=== PATIENT | female | born 1955 ===

== ENCOUNTER 2017-08-23 12:50 | Emergency (ER) | payer OTHER ==
[2017-08-23 13:09] VITALS: RESP 18; TEMP 97.9
--- NOTE | 2017-08-23 13:29 | ED PDOC ---
Arrival/HPI - General Chief Complaint: Anxiety Time Seen by Provider: 08/23/17 12:55 Historian: Patient, Other (coworker) - History of Present Illness Narrative History of Present Illness (Text): 08/23/17 13:15 A 61 year old female, who denies any significant past medical history,is brought into the emergency department by coworker after having a breakdown during lunch at work. The coworker notes the patient began to appear anxious, vomiting, and refused to communicate. The patient at bedside answers some questions and appears tearful. The patient's has been contacted and is on his way to the emergency department. Limited HPI & ROS due to patients mental status. Time/Duration: Prior to Arrival Symptom Onset: Sudden Symptom Course: Unchanged Activities at Onset: Emotional Upset Context: Work Past Medical History - Provider Review Nursing Documentation Reviewed: Yes - Psychiatric Hx Substance Use: No (unable to obtain) Family/Social History - Physician Review Nursing Documentation Reviewed: Yes Family/Social History: No Known Family HX Smoking Status: Unknown If Ever Smoked Hx Alcohol Use: No (unable to obtain) Hx Substance Use: No (unable to obtain) Allergies/Home Meds Allergies/Adverse Reactions: Allergies Unobtainable Allergy (Verified 08/23/17 13:08) Home Medications: Home Meds Medication Instructions Recorded Confirmed No Known Home Med 08/23/17 08/23/17 Review of Systems - Patients Enrolled in [employer] Initiative [X]: A conversation was conducted with the primary medical doctor. - Physician Review All systems were reviewed & negative as marked: Yes - Review of Systems Gastrointestinal: Vomiting Psychiatric: Anxiety Physical Exam Vital Signs Reviewed: Yes Vital Signs Temp Pulse Resp BP Pulse Ox 08/23/17 15:00 76 18 126/77 99 08/23/17 13:06 97.9 F 77 18 133/77 100 Temperature: Afebrile Blood Pressure: Normal Pulse: Regular Respiratory Rate: Normal Appearance: Positive for: Well-Appearing, Non-Toxic, Comfortable Pain Distress: None Mental Status: Positive for: Alert and Oriented X 3, other (tearful & anxious ) Finger Stick Blood Glucose: 138 - Systems Exam Head: Present: Atraumatic, Normocephalic Pupils: Present: PERRL Extroacular Muscles: Present: EOMI Conjunctiva: Present: Normal Mouth: Present: Moist Mucous Membranes Neck: Present: Normal Range of Motion Respiratory/Chest: Present: Clear to Auscultation, Good Air Exchange. No: Respiratory Distress, Accessory Muscle Use Cardiovascular: Present: Regular Rate and Rhythm, Normal S1, S2. No: Murmurs Abdomen: Present: Normal Bowel Sounds. No: Tenderness, Distention, Peritoneal Signs Back: Present: Normal Inspection Upper Extremity: Present: Normal Inspection. No: Cyanosis, Edema Lower Extremity: Present: Normal Inspection. No: Edema Neurological: Present: GCS=15, CN II-XII Intact, Speech Normal Skin: Present: Warm, Dry, Normal Color. No: Rashes Psychiatric: Present: Alert, Oriented x 3, Anxious Medical Decision Making ED Course and Treatment: 08/23/17 13:15 Impression: A 61 year old female who is anxious Differential Diagnosis included but are not limited to: Plan: -- EKG -- Chest X-ray -- Labs -- Zofran -- Urinalysis -- Reassess and disposition Progress Notes: 08/23/17 15:34 pt reassesed. now communicating. states "has been stressed". pes worker cleared pt for d/c - Lab Interpretations Lab Results: 08/23/17 13:50 08/23/17 13:50 Lab Results 08/23/17 14:50: Urine Opiates Screen Negative, Urine Methadone Screen Negative, Ur Barbiturates Screen Negative, Ur Phencyclidine Scrn Negative, Ur Amphetamines Screen Negative, U Benzodiazepines Scrn Negative, U Oth Cocaine Metabols Negative, U Cannabinoids Screen Negative 08/23/17 14:50: Urine Color Yellow, Urine Appearance Clear, Urine pH 8.5, Ur Specific [place] 1.015, Urine Protein Trace H, Urine Glucose (UA) Negative, Urine Ketones 40 H, Urine Blood Negative, Urine Nitrate Negative, Urine Bilirubin Negative, Urine Urobilinogen 0.2, Ur Leukocyte Esterase Negative, Urine RBC 0 - 2, Urine WBC 2 - 5, Ur Epithelial Cells 0 - 2, Urine Bacteria Few 08/23/17 13:50: Alcohol, Quantitative < 10 08/23/17 13:50: Salicylates < 1 L, Acetaminophen < 10.0 L 08/23/17 13:50: Sodium 141, Potassium 3.3 L, Chloride 107, Carbon Dioxide 21, Anion Gap 16, BUN 16, Creatinine 0.9, Est GFR ( Amer) > 60, Est GFR (Non- Af Amer) > 60, Random Glucose 131 H, Calcium 10.0, Total Bilirubin 0.5, AST 31, ALT 20, Alkaline Phosphatase 61, Total Protein 7.6, Albumin 4.7, Globulin 2.9, Albumin/Globulin Ratio 1.6 08/23/17 13:50: WBC 9.8, RBC 4.80, Hgb 13.9, Hct 40.5, MCV 84.4, MCH 29.0, MCHC 34.3, RDW 12.6, Plt Count 304, MPV 9.8, Gran % 79.1 H, Lymph % (Auto) 15.2 L, [place] % (Auto) 5.4, Eos % (Auto) 0.1 L, Baso % (Auto) 0.2, Gran # 7.77 H, Lymph # 1.5, [place] # 0.5, Eos # 0.0, Baso # 0.02 - RAD Interpretation Radiology Orders: 08/23/17 13:16 CHEST PORTABLE [RAD] Stat - Medication Orders Current Medication Orders: Discontinued Medications Lorazepam (Ativan) 0.5 mg PO ONCE ONE PRN Reason: Protocol Stop: 08/23/17 14:51 Last Admin: 08/23/17 15:00 Dose: 0.5 mg Ondansetron HCl (Zofran Inj) 4 mg IVP STAT STA Stop: 08/23/17 13:18 Last Admin: 08/23/17 13:56 Dose: 4 mg IVP Administration Document 08/23/17 13:56 CNR (Rec: 08/23/17 13:56 CNR [email or web address] Charges for Administration # of IVP Administrations 1 Potassium Chloride (K-Dur 20 Meq Er Tab) 40 meq PO STAT STA Stop: 08/23/17 14:20 Last Admin: 08/23/17 14:29 Dose: 40 meq - Scribe Statement The provider has reviewed the documentation as recorded by the Sharlene Farrell Provider Scribe Attestation: All medical record entries made by the Scribe were at my direction and personally dictated by me. I have reviewed the chart and agree that the record accurately reflects my personal performance of the history, physical exam, medical decision making, and the department course for this patient. I have also personally directed, reviewed, and agree with the discharge instructions and disposition. Disposition/Present on Arrival - Present on Arrival Any Indicators Present on Arrival: No History of DVT/PE: No History of Uncontrolled Diabetes: No Urinary Catheter: No History of Decub. Ulcer: No History Surgical Site Infection Following: None - Disposition Have Diagnosis and Disposition been Completed?: Yes Diagnosis: Anxiety Disposition: HOME/ ROUTINE Disposition Time: 05:00 Condition: STABLE Discharge Instructions (ExitCare): Anxiety (ED) Additional Instructions: please follow up as directed by pes worker. return to emergency room with worsening symptoms or concerns. Referrals: PCP,NO [Non-Staff] - Follow up with primary [facility] [Outside] - Follow up with primary [facility] [Outside] - Follow up with primary Forms: [employer] ([place])
[2017-08-23 14:03] LABS: BASO # 0.02 K/mm3 (0.0-2.0); BASO % 0.2 % (0.0-3.0); EOS % 0.1 % (1.5-5.0); GRAN # 7.77 (1.4-6.5); GRAN % 79.1 % (50.0-68.0); HEMATOCRIT 40.5 % (36.0-48.0); LYMPH # 1.5 (1.2-3.4); LYMPH % 15.2 % (22.0-35.0); MEAN CELL VOLUME 84.4 fl (80.0-105.0); MEAN CORPUSCULAR HGB CONC 34.3 g/dl (31.0-37.0); MEAN PLATELET VOLUME 9.8 fl (7.0-11.0); MONO # 0.5 (0.1-0.6); MONO % 5.4 % (1.0-6.0); RED CELL DISTRIBUTION WIDTH 12.6 % (11.5-14.5); WHITE BLOOD COUNT 9.8 10^3/ul (4.5-11.0)
[2017-08-23 14:12] LABS: ALB/GLOB RATIO 1.6 (1.1-1.8); ALKALINE PHOSPHATASE 61 U/L (38-126); ALT/SGPT 20 U/L (7-56); AST/SGOT 31 U/L (14-36); BILIRUBIN,TOTAL 0.5 mg/dL (0.2-1.3); BLOOD UREA NITROGEN 16 mg/dL (7-21); CARBON DIOXIDE 21 mmol/L (21-33); CHLORIDE 107 mmol/L (98-107); GFR AFRICAN-AMERICAN > 60; GLUCOSE,RANDOM 131 mg/dL (70-110); POTASSIUM 3.3 mmol/L (3.6-5.0); SODIUM 141 mmol/L (132-148); TOTAL PROTEIN 7.6 g/dL (5.8-8.3)
[2017-08-23] MEDS ORDERED: Potassium Chloride 20 mEq ER Tab PO STA (14:19)
[2017-08-23 15:08] VITALS: BP 126/77; PULSE 76; O2SAT 99
[2017-08-23 15:11] LABS: PH,URINE 8.5 (4.7-8.0); URINE BILIRUBIN NEGATIVE (NEGATIVE); URINE BLOOD NEGATIVE (NEGATIVE); URINE GLUCOSE (UA) NEGATIVE (NEGATIVE); URINE KETONE 40 mg/dL (NEGATIVE); URINE LEUKOCYTE ESTERASE NEGATIVE Leu/uL (NEGATIVE); URINE PROTEIN TRACE mg/dL (<30 mg/dL); URINE UROBILINOGEN 0.2 E.U./dL (<1 E.U./dL)
[2017-08-23 15:15] LABS: URINE APPEARANCE CLEAR (CLEAR); URINE COLOR YELLOW (YELLOW)
[2017-08-23 15:27] LABS: URINE BACTERIA FEW (NEG); URINE EPITHELIAL CELLS 0 - 2 /hpf (0-5); URINE RBC 0 - 2 /hpf (0-2)
--- NOTE | 2017-08-23 16:21 | CARD ---
APPROVED REPORT EKG Measurement Heart [id number] <Conclusion> Normal sinus rhythm LVH by voltage Prolonged QTc
--- NOTE | 2017-08-23 16:45 | RAD ---
HISTORY: pysch COMPARISON: No prior. FINDINGS: LUNGS: No active pulmonary disease. PLEURA: No significant pleural effusion identified, no pneumothorax apparent. CARDIOVASCULAR: Normal. OSSEOUS STRUCTURES: No significant abnormalities. VISUALIZED UPPER ABDOMEN: Normal. OTHER FINDINGS: None. IMPRESSION: No active disease.
== END 2017-08-23 15:53 | disposition home or self-care (01) ==
LOC: ED 12:50
DX: F41.9 Anxiety disorder, unspecified (principal)
CPT/HCPCS: 71010; 80053; 80320; 80324; 80329; 80345; 80346; 80349; 80353; 80358; 80361; 81001; 83992; 85025; 90791; 93005; 96374; 99283; J2405